=== PATIENT | female | born 1975 | race Caucasian/White ===

== ENCOUNTER 2023-09-03 11:57 | Emergency (ER) | payer MEDICAID ==
[~2023-09-03] VITALS: Ht 167.6 cm; Wt 59.4 kg
[2023-09-03 12:45] VITALS: BP 133/84; TEMP 98.7; O2SAT 99
== END 2023-09-03 14:11 | disposition left against medical advice (07) ==
LOC: ER 12:06
DX: H92.02 Otalgia, left ear (principal); Z53.21 Procedure and treatment not carried out due to patient leaving prior to being seen by health care provider